=== PATIENT | male | born 1995 | race African-American/Black ===

== ENCOUNTER 2024-11-22 20:21 | Emergency (ER) | payer MEDICAID ==
[~2024-11-22] VITALS: Ht 185.4 cm; Wt 68.0 kg
[2024-11-22 20:29] VITALS: O2SAT 100
[2024-11-22] MEDS: KETOROLAC 15MG/ML VIAL IM ONE (21:42)
[2024-11-22 22:09] VITALS: BP 99/67; PULSE 61; RESP 18; TEMP 36.7; O2SAT 99
== END 2024-11-22 22:16 | disposition home or self-care (01) ==
LOC: ER 20:21
DX: S62.101A Fracture of unspecified carpal bone, right wrist, initial encounter for closed fracture (principal); W11.XXXA Fall on and from ladder, initial encounter; Y93.89 Activity, other specified; Y92.89 Other specified places as the place of occurrence of the external cause; Y99.8 Other external cause status
CPT/HCPCS: 99284; 73110; 73130; 29125; 96372; J1885; A6449; 96365